=== PATIENT | female | born 1990 | race Caucasian/White ===

== ENCOUNTER 2021-03-20 16:37 | Emergency (ER) | payer OTHER, MEDICAID, SELFPAY ==
--- NOTE | ~2021-03-20 | US_ITS ---
US OB limited DATE: 03/20/2021 18:55 INDICATION: Leaking fluid. Miscarriage. TECHNIQUE: Real-time imaging and Doppler analysis COMPARISON: None FINDINGS: Live james intrauterine gestation, fetus in vertex presentation, longitudinal lie, with heart rate of 150 bpm. Anterior placenta. Subjectively normal amount of amniotic fluid. IMPRESSION: No significant abnormality demonstrated on limited examination Reviewed, dictated and finalized at [facility]. Reviewed, dictated and finalized at [facility].
[2021-03-20 16:44] VITALS: BP 143/72; PULSE 97; RESP 18; TEMP 36.5; O2SAT 98
[2021-03-20 18:20] LABS: Basophils Percent Auto 0.1 % (0.2-1.2); Eosinophils Absolute Auto 0.1 K/mm3 (0-0.3); Eosinophils Percent Auto 0.6 % (0-4.4); Hematocrit 26.5 % (37.0-47.0); Hemoglobin 7.2 g/dL (12.0-15.0); Immature Granulocyte Absolute 0.04 K/mm3 (0.00-0.031); Immature Granulocyte Percent A 0.4 % (0-0.5); Immature Platelet Fraction Pct 5.1 % (0.9-11.2); Lymphocytes Absolute Auto 2.37 K/mm3 (0.9-3.2); Lymphocytes Percent Auto 25.5 % (18.3-44.2); Mean Corpuscular HGB Conc 27.2 g/dl (32-36); Mean Corpuscular Hemoglobin 15.9 pg (26-34); Mean Corpuscular Volume 58.6 fl (80-100); Mean Platelet Volume 9.6 fl (7.4-10.4); Monocytes Absolute Auto 0.6 K/mm3 (0.1-0.6); Monocytes Percent Auto 6.4 % (2.6-8.5); Neutrophils Absolute Auto 6.2 K/mm3 (1.3-6.7); Platelet Count Result 239 k/mm3 (150-375); Red Blood Count 4.52 M/mm3 (4.2-5.4); Red Cell Distribution Width 21.3 % (11.5-14.5); White Blood Count 9.3 K/mm3 (4.5-10.0)
[2021-03-20 18:27] LABS: Platelet Estimate Adequate (Adequate)
[2021-03-20 18:28] LABS: Hypochromasia 2+ (NORMAL); Ovalocytes 1+ (NORMAL)
--- NOTE | 2021-03-20 18:33 | ED.PREGNANCY ---
HPI - General Chief complaint: MEDIA CENTER ASSISTANT Stated complaint: leaking amniotic fluid Time Seen by Provider: 03/20/21 17:15 Source: patient and family Mode of arrival: ambulatory Limitations: no limitations History of Present Illness HPI Narrative: Patient is 31 years old white female who presented to the ED with sudden onset of gush of clear fluid came out of the vagina yesterday, been trickling since. Patient is of unknown duration, does not know when the last time she had it.. Did not see an FLOORING MECHANIC or any physician for years. Patient denies any fever, chills, nausea, vomiting, abdominal pain, chest pain, shortness of breath or back pain. Patient is 0, para 0 and 0 Related Data Home Medications Medication Instructions Recorded Confirmed prenat.vits,rudy,[id number] 1 tablet PO DAILY 02/17/21 Allergies Allergy/AdvReac Type Severity Reaction Status Date / Time No Known Allergies Allergy Verified 03/20/21 16:46 Review of Systems Review of Systems: Narrative: CONSTITUTIONAL: Denies fever, chills, or sweats. EYES: Denies visual changes, redness, or discharge. ENT: Denies rhinorrhea, congestion, sore throat, or otalgia. CARDIOVASCULAR: Denies chest pain, palpitations, or edema. RESPIRATORY: Denies cough or dyspnea. GASTROINTESTINAL: Denies abdominal pain, nausea, vomiting, or diarrhea. GENITOURINARY: Denies dysuria or hematuria. SKIN: Denies rash or itching. MUSCULOSKELETAL: Denies back pain, joint pain, or myalgia. NEUROLOGIC: Denies headache, numbness, or weakness. PSYCHIATRIC: Denies anxiety or depression. PMFSH Surgical History Surgical History History of oral surgery Family History Family History Father Alcoholism Hypertension Mother Diabetes mellitus Depression Grandparent Diabetes mellitus Hypertension Depression Heart disease Thyroid disorder Social History Social History Smoking status: Current every day smoker Alcohol intake: never Substance use: never Gender identity (if verbalized by the patient): Female Exam Narrative: Exam Narrative: General appearance: Well-developed, well-nourished Skin: Normal color Head: Normocephalic, nontraumatic Eyes: Clear conjunctiva ENT: Oropharynx normal, ears normal, nose normal Neck: Supple, nontender Chest and respiratory: Airway patent, no respiratory distress, no accessory muscle use Heart: Regular rate/rhythm Abdomen: Soft, nontender, no organomegaly, quiet bowel sounds Vascular: Normal peripheral pulses, normal capillary refill. Musculoskeletal: Normal range of motion, nontender back Neurologic: Alert and oriented ?3, BANK PRESIDENT is normal as tested, no gross motor deficit : Speculum Exam - Vagina: normal appearance of the vagina and normal vaginal discharge Speculum Exam - Cervix: normal appearance of the cervix and Cervical os closed Bimanual exam- vagina & uterus: normal bimanual exam and normal palpation Bimanual Exam- Adnexa, other: normal adnexae Course Course Emergency Course: Stable Consultations Consultation #1: Dr. Botello, patient can go home, to follow-up with me on as scheduled. Date: 03/20/21 Time: 20:44 Vital Signs Vital signs: Vital Signs Temperature 36.5 C 03/20/21 16:44 Pulse Rate 97 03/20/21 16:44 Respiratory Rate 18 03/20/21 16:44 Blood Pressure 143/72 H 03/20/21 16:44 Pulse Oximetry 98 03/20/21 16:44 Temperature 36.5 C 03/20/21 16:44 Pulse Rate 92 03/20/21 19:56 Respiratory Rate 14 03/20/21 19:56 Blood Pressure
[2021-03-20 19:56] VITALS: BP 132/84; PULSE 92; RESP 14; O2SAT 98
== END 2021-03-20 20:53 | disposition home or self-care (01) ==
PROVIDERS: Emergency Provider Emergency Medicine
DX: O99.019 Anemia complicating pregnancy, unspecified trimester (principal); D64.9 Anemia, unspecified; O99.330 Smoking (tobacco) complicating pregnancy, unspecified trimester; F17.200 Nicotine dependence, unspecified, uncomplicated; Z3A.00 Weeks of gestation of pregnancy not specified
CPT/HCPCS: 36415; 76815; 81025; 84702; 85025; 85055; 85461; 99284

== ENCOUNTER 2021-03-23 13:54 | Outpatient (CLI) | payer MEDICAID, SELFPAY ==
[2021-03-23 14:35] LABS: Immature Reticulocyte Fraction 28.3 % (3.0-15.9); Reticulocytes Absolute 0.09 B/L (32.2-175.7)
[2021-03-23 14:42] LABS: Add Urine Microscopic? YES; Appearance Urine Cloudy (Clear); Bacteria Urine Trace /hpf; Bilirubin Urine Negative (Negative); Blood Urine Negative (Negative); Color Urine Yellow (Yellow); Glucose Urine UA Negative (Negative); Ketones Urine Negative (Negative); Leukocyte Esterase Ur 3+ LEU/UL (NEGATIVE); Mucus Urine Moderate /lpf; Nitrate Urine Negative (Negative); Protein Urine 1+ mg/dL (Negative); Squamous Epithelial Cell Urine Many /hpf (Few); Urobilinogen Urine Negative mg/dL (<2.0)
[2021-03-23 15:19] LABS: Iron 77 ug/dL (37-170)
[2021-03-23 15:28] LABS: Percent Iron Saturation 14 % (20-50)
[2021-03-23 15:29] LABS: HIV 1/2 Ab P24 Ag Result Negative (Negative)
[2021-03-23 15:56] LABS: Ferritin 3.89 ng/mL (6.24-137)
[2021-03-23 16:59] LABS: Vitamin D 25 Hydroxy 23.8 ng/mL
[2021-03-23 17:12] LABS: Hepatitis B Surface Antigen Negative (Negative); Rubella IgG Antibody < 0.6 IU/ML
[2021-03-23 17:29] LABS: Hepatitis C Virus Antibody Negative (Negative)
[2021-03-24 07:19] LABS: Rapid Plasma Reagin Non-Reactive (NonReactive)
[2021-03-29 05:43] LABS: Hematocrit 27.6 % (35.0-45.0); Hemoglobin 7.9 g/dL (11.7-15.5); MCH 16.1 pg (27.0-33.0); MCV 56.1 FL (80.0-100.0); Red Blood Cell Count 4.92 Mill/uL (3.80-5.10)
== END 2021-03-23 13:55 | disposition home or self-care (01) ==
PROVIDERS: Visit Provider Student in an Organized Health Care Education/Training Program
DX: O36.80X0 Pregnancy with inconclusive fetal viability, not applicable or unspecified (principal); Z3A.14 14 weeks gestation of pregnancy
CPT/HCPCS: 36415; 81001; 82306; 82728; 83021; 83540; 83550; 84443; 85046; 86592; 86703; 86762; 86787; 86803; 86850; 86900; 86901; 87086; 87088; 87340; G0432

== ENCOUNTER 2021-03-24 15:46 | Outpatient (CLI) | payer MEDICAID, SELFPAY ==
--- NOTE | ~2021-03-24 | US_ITS ---
EXAMINATION: US OB <= 14 weeks fetus DATE: 03/24/2021 16:27 INDICATION: Inconclusive viability during second trimester of . TECHNIQUE: Real-time pelvic ultrasound utilizing both a transvaginal and transabdominal probe was pe rformed. The interpreting radiologist was not present for the study. COMPARISON: None. FINDINGS: The uterus measures 13.9 x 9.4 x 8.8 cm. There is an intrauterine gestational sac. A single fetus is seen in breech presentation. The crown rump length measures 8.3 cm, which correlates with an estimat ed gestational age of 14 weeks and 1 days. heart motion is identified measuring 163 beats per m inute (bpm) by M-mode Doppler. Amniotic fluid volume is subjectively normal. The bilateral ovaries ar e not visualized. There is no free fluid in the pelvis. IMPRESSION: 1. Single living fetus with heart rate of 163 bpm. 2. Gestational age by ultrasound of 14 weeks 1 day(s) +/- 1 week and 2 day(s) with ultrasound estima adeline date of delivery (YUMIKO) of 09/21/2021. Reviewed, dictated and finalized at location [facility]. IMPRESSION: 1. Single living fetus with heart rate of 163 bpm. 2. Gestational age by ultrasound of 14 weeks 1 day(s) +/- 1 week and 2 day(s) with ultrasound estimated date of delivery (YUMIKO) of 09/21/2021.
== END 2021-03-24 15:47 | disposition home or self-care (01) ==
PROVIDERS: Visit Provider Student in an Organized Health Care Education/Training Program
DX: Z34.92 Encounter for supervision of normal pregnancy, unspecified, second trimester (principal); Z3A.14 14 weeks gestation of pregnancy
CPT/HCPCS: 76801

== ENCOUNTER 2021-06-28 11:23 | Outpatient (CLI) | payer OTHER, SELFPAY ==
[2021-06-28 12:23] LABS: Total Volume 24 Hour Urine 2800 ml
[2021-06-28 12:25] LABS: Specific Gravity Ur 1.012
[2021-06-28 12:33] LABS: Total Protein Urine 24 Hr 336 mg/24hr (28-141); Total Protein Urine Random 12 mg/dL
[2021-06-28 12:34] LABS: Creatinine Urine 45.3 mg/dL
[2021-06-28 13:28] LABS: Basophils Percent Auto 0.1 % (0.2-1.2); Eosinophils Percent Auto 0.4 % (0-4.4); Hematocrit 39.4 % (37.0-47.0); Hemoglobin 12.6 g/dL (12.0-15.0); Immature Granulocyte Absolute 0.05 K/mm3 (0.00-0.031); Immature Granulocyte Percent A 0.6 % (0-0.5); Immature Platelet Fraction Pct 10.6 % (0.9-11.2); Lymphocytes Absolute Auto 2.62 K/mm3 (0.9-3.2); Lymphocytes Percent Auto 29.2 % (18.3-44.2); Mean Corpuscular Hemoglobin 26.9 pg (26-34); Monocytes Absolute Auto 0.8 K/mm3 (0.1-0.6); Monocytes Percent Auto 9.2 % (2.6-8.5); Neutrophils Absolute Auto 5.4 K/mm3 (1.3-6.7); Neutrophils Percent Auto 60.5 % (45.5-73.1); Platelet Count Result 156 k/mm3 (150-375); Red Blood Count 4.69 M/mm3 (4.2-5.4); Red Cell Distribution Width 17.6 % (11.5-14.5)
[2021-06-28 13:45] LABS: Creatinine 24 Hour Urine 1.2 gm/24 (0.8-1.8); Total Volume 24 Hour Urine 2800 ml
[2021-06-28 13:58] LABS: Alanine Aminotransferase 16 U/L (4-35); Albumin Level 3.4 g/dL (3.5-5.1); Alkaline Phosphatase 83 U/L (38-126); Anion Gap 8 mmol/L (8-16); Aspartate Amino Transferase 20 U/L (14-36); Bilirubin,Total 0.2 mg/dL (0.2-1.3); Blood Urea Nitrogen 11 mg/dL (7-17); Calcium 8.7 mg/dL (8.4-10.2); Carbon Dioxide 18 mmol/L (22-30); Chloride 109 mmol/L (98-107); Estimated Glomerular Filt Rate > 60; Glucose 112 mg/dL (65-110); Glucose 1 Hour PP 50gm Dose 113 mg/dL; Lactate Dehydrogenase 388 U/L (313-618); Potassium 4.1 mmol/L (3.4-5.0); Sodium 135 mmol/L (137-145); Uric Acid 4.5 mg/dL (2.5-7.5)
== END 2021-06-28 11:24 | disposition home or self-care (01) ==
PROVIDERS: Visit Provider Student in an Organized Health Care Education/Training Program
DX: O16.2 Unspecified maternal hypertension, second trimester (principal); Z3A.00 Weeks of gestation of pregnancy not specified
CPT/HCPCS: 36415; 80053; 81050; 82570; 82947; 83615; 84156; 84443; 84550; 85025; 85055

== ENCOUNTER 2021-06-29 08:14 | Outpatient (CLI) | payer OTHER, SELFPAY | END 2021-06-29 08:15 | disposition home or self-care (01) | PROVIDERS: Visit Provider Student in an Organized Health Care Education/Training Program | DX: Z34.90 Encounter for supervision of normal pregnancy, unspecified, unspecified trimester (principal); R39.9 Unspecified symptoms and signs involving the genitourinary system; Z3A.00 Weeks of gestation of pregnancy not specified | CPT/HCPCS: 87086 ==

== ENCOUNTER 2021-07-07 14:24 | Outpatient (CLI) | payer OTHER, SELFPAY ==
[2021-07-07] VITALS (34 sets, daily range): BP systolic 145–175; BP diastolic 73–100; PULSE 50–74; RESP 16; TEMP 37.2; O2SAT 99–100
[2021-07-07 15:26] LABS: Basophils Percent Auto 0.2 % (0.2-1.2); Eosinophils Absolute Auto 0.1 K/mm3 (0-0.3); Eosinophils Percent Auto 0.5 % (0-4.4); Hematocrit 35.9 % (37.0-47.0); Hemoglobin 11.9 g/dL (12.0-15.0); Immature Granulocyte Absolute 0.05 K/mm3 (0.00-0.031); Immature Granulocyte Percent A 0.5 % (0-0.5); Immature Platelet Fraction Pct 12.4 % (0.9-11.2); Lymphocytes Absolute Auto 2.74 K/mm3 (0.9-3.2); Lymphocytes Percent Auto 27.6 % (18.3-44.2); Mean Corpuscular HGB Conc 33.1 g/dl (32-36); Mean Corpuscular Hemoglobin 28.1 pg (26-34); Mean Corpuscular Volume 84.7 fl (80-100); Monocytes Absolute Auto 0.9 K/mm3 (0.1-0.6); Neutrophils Absolute Auto 6.2 K/mm3 (1.3-6.7); Neutrophils Percent Auto 62.2 % (45.5-73.1); Platelet Count Result 111 k/mm3 (150-375); Red Blood Count 4.24 M/mm3 (4.2-5.4); Red Cell Distribution Width 15.6 % (11.5-14.5); White Blood Count 9.9 K/mm3 (4.5-10.0)
[2021-07-07 15:27] LABS: Alanine Aminotransferase 57 U/L (4-35); Albumin Level 3.3 g/dL (3.5-5.1); Alkaline Phosphatase 92 U/L (38-126); Anion Gap 8 mmol/L (8-16); Aspartate Amino Transferase 37 U/L (14-36); Bilirubin,Total 0.2 mg/dL (0.2-1.3); Blood Urea Nitrogen 16 mg/dL (7-17); Calcium 8.9 mg/dL (8.4-10.2); Carbon Dioxide 20 mmol/L (22-30); Chloride 105 mmol/L (98-107); Estimated Glomerular Filt Rate > 60; Glucose 84 mg/dL (65-110); Potassium 4.3 mmol/L (3.4-5.0); Sodium 133 mmol/L (137-145); Uric Acid 5.5 mg/dL (2.5-7.5)
[2021-07-07] MEDS: LABETALOL HCL INJ 100 MG/20 ML VIAL 20 MG IV PUSH (15:36)
[2021-07-07] MEDS: LABETALOL HCL 100 MG TABLET 200 MG PO (15:40)
--- NOTE | 2021-07-07 17:19 | PM.IMHP ---
H&P: HPI History of Present Illness Date/Time: 07/07/21 17:19 Patient is a 31-year-old LMP uncertain in December 2020. Patient currently 29 weeks 1 day gestation with YUMIKO 09/21/2021. Patient is dated by ultrasound on 03/24/2021 at 14 weeks gestation. Patient presented to OB office for routine visit today. Patient had first elevated blood pressure in office on 05/26/21 and was subsequently diagnosed with gestational hypertension. A 24 hour urine collection was performed on 06/28/2021 showing 336 mg of protein. Patient diagnosed with preeclampsia. Patient has been taking blood pressure measurements at home and brought blood pressure log to office visit today. Blood pressures have been progressively worsening over past week. In office today, patient had two severe range elevated blood pressure measurements. Patient was sent to labor and delivery for further evaluation. On labor and delivery, patient continued to have persistently elevated blood pressures with a few further measurements in the severe range. Patient received 1 dose of Labetalol IV 20 mg as well as one dose of PO Labetalol 200 mg. Labs were obtained and patient was noted to have thrombocytopenia as well as an increase in liver enzymes, which is a significant change from labs obtained last week. Patient also reports feeling a little worse today. Reported a headache earlier today as well as feeling extremely tired. She denies any chest pain, shortness of breath, nausea, vomiting, or visual disturbances. Reported epigastric and right upper quadrant tenderness two days ago. She also reports worsening LE and UE edema over past few days. She denies any vaginal bleeding, leakage of fluid, or contractions. Reports good movement. Decision made to admit patient to labor and delivery for further management as well as transfer to tertiary care center for management of preeclampsia with severe features at 29 weeks gestation. Chief Complaint: IUP at 29w1d gestation Preeclampsia Review of Systems Review of Systems: All systems reviewed & are unremarkable except as noted in HPI and below Constitutional: Constitutional: Reports as per HPI, Reports no additional constitutional complaints, Denies chills, Denies fever(s), Denies headache(s) and Denies night sweats Eyes: Eyes: Reports as per HPI and Reports no additional eye complaints ENT: Reports system reviewed and no additional complaints, except as documented, Reports as per HPI, Reports Normal hearing present and Denies headache(s) Cardiovascular: Cardiovascular: Reports as per HPI, Reports no additional cardiovascular complaints, Denies chest pain and Denies dyspnea Respiratory: Respiratory: Reports as per HPI, Reports no additional respiratory complaints, Denies cough and Denies dyspnea Gastrointestinal: Gastrointestinal: Reports as per HPI, Reports no additional gastrointestinal complaints, Denies abdominal pain, Denies change in bowel habits, Denies change in stool character, Denies nausea and Denies vomiting Genitourinary: Genitourinary: Reports no additional female genitourinary complaints, Reports as per HPI, Denies abnormal vaginal bleeding, Denies genital lesions, Denies hot flashes, Denies dyspareunia, Denies pelvic pain, Denies sexual dysfunction, Denies urinary incontinence, Denies vaginal discharge, Denies vaginal dryness and Denies vaginal odor Musculoskeletal: Musculoskeletal: Reports no additional musculoskeletal complaints and Reports as per HPI Integumentary/Breasts: Skin/Breast: Reports system reviewed and no additional complaints, except as docu, Reports as per HPI, Denies breast pain and Denies nipple discharge Neurologic: Reports system reviewed and no additional complaints, except as documented, Reports as per HPI, Reports Normal hearing present and Denies headache(s) Psychiatric: Psychiatric: Reports no additional psychiatric complaints, Reports as per HPI, Denies anxiety and Denies depression Endocrine: Endoc
[2021-07-07] MEDS: LACTATED RINGERS 1,000 ML 75 ML IV CONT (17:26)
[2021-07-07] MEDS: MAGNESIUM SULF 4 GM/WATER100ML 4 GM/100 ML BAG IVPB (17:31)
[2021-07-07] MEDS: BETAMETHASONE SOD PHOS/ACETATE 30 MG/5 ML VIAL 12 MG IM (17:38)
--- NOTE | 2021-07-07 17:54 | PC.NURSE ---
1703- Dr. Botello at bedside discussing plan of care with pt.
--- NOTE | 2021-07-07 17:56 | PC.NURSE ---
1717- report given to VERONICA Sandoval at [facility].
--- NOTE | 2021-07-07 17:56 | PCDIET ---
1740- [facility] transport en route.
[2021-07-07] MEDS: MAGNESIUM SULF 20GM/WATER500ML 500 ML 50 MG IV CONT (18:03)
== END 2021-07-07 19:04 | disposition short-term general hospital (02) ==
LOC: ANHOBOP 14:28 → ANHOBPP 14:29
PROVIDERS: Visit Provider Student in an Organized Health Care Education/Training Program
DX: O13.9 Gestational [pregnancy-induced] hypertension without significant proteinuria, unspecified trimester (principal); Z3A.29 29 weeks gestation of pregnancy; O14.90 Unspecified pre-eclampsia, unspecified trimester; O99.019 Anemia complicating pregnancy, unspecified trimester; Z87.891 Personal history of nicotine dependence
CPT/HCPCS: 36415; 80053; 84550; 85025; 85055; 96372; 99199; A9270; J0702; J3475; J7120

== ENCOUNTER 2023-04-26 08:15 | Outpatient (CLI) | payer OTHER, SELFPAY ==
[2023-04-26 14:32] LABS: Basophils Percent Auto 0.3 % (0.2-1.2); Eosinophils Absolute Auto 0.2 K/mm3 (0-0.3); Eosinophils Percent Auto 1.7 % (0-4.4); Hematocrit 42.6 % (37.0-47.0); Hemoglobin 13.8 g/dL (12.0-15.0); Immature Granulocyte Absolute 0.02 K/mm3 (0.00-0.031); Immature Granulocyte Percent A 0.2 % (0-0.5); Lymphocytes Absolute Auto 2.31 K/mm3 (0.9-3.2); Lymphocytes Percent Auto 26.3 % (18.3-44.2); Mean Corpuscular HGB Conc 32.4 g/dl (32-36); Mean Corpuscular Hemoglobin 27.2 pg (26-34); Mean Corpuscular Volume 83.9 fl (80-100); Mean Platelet Volume 10.2 fl (7.4-10.4); Monocytes Absolute Auto 0.7 K/mm3 (0.1-0.6); Monocytes Percent Auto 7.6 % (2.6-8.5); Neutrophils Absolute Auto 5.6 K/mm3 (1.3-6.7); Neutrophils Percent Auto 63.9 % (45.5-73.1); Platelet Count Result 229 k/mm3 (150-375); Red Blood Count 5.08 M/mm3 (4.2-5.4); Red Cell Distribution Width 12.9 % (11.5-14.5); White Blood Count 8.8 K/mm3 (4.5-10.0)
[2023-04-26 16:19] LABS: Alanine Aminotransferase 29 U/L (6-35); Albumin Level 4.3 g/dL (3.5-5.1); Alkaline Phosphatase 66 U/L (38-126); Anion Gap 3 mmol/L (8-16); Aspartate Amino Transferase 29 U/L (14-36); Bilirubin,Total 0.5 mg/dL (0.2-1.3); Blood Urea Nitrogen 12 mg/dL (7-17); Calcium 9.3 mg/dL (8.4-10.2); Carbon Dioxide 28 mmol/L (22-30); Chloride 102 mmol/L (98-107); Cholesterol 209 mg/dL (0-200); Estimated Glomerular Filt Rate > 60; Glucose 92 mg/dL (65-110); HDL Direct 44 mg/dL; Potassium 4.3 mmol/L (3.4-5.0); Sodium 133 mmol/L (137-145); Triglycerides 225 mg/dL (<150)
[2023-04-26 16:31] LABS: LDL Cholesterol Direct 125 mg/dL
== END 2023-04-26 08:16 | disposition home or self-care (01) ==
LOC: ANHGOSHLAB 08:16
PROVIDERS: PCP Internal Medicine; Visit Provider Nurse Practitioner
DX: E66.9 Obesity, unspecified (principal)
CPT/HCPCS: 36415; 80053; 80061; 84443; 85025

== ENCOUNTER 2023-11-12 15:37 | Outpatient (CLI) | payer OTHER, SELFPAY ==
[2023-11-12 16:19] LABS: Basophils Percent Auto 0.2 % (0.2-1.2); Eosinophils Absolute Auto 0.1 K/mm3 (0-0.3); Hematocrit 44.3 % (37.0-47.0); Hemoglobin 14.1 g/dL (12.0-15.0); Immature Granulocyte Absolute 0.02 K/mm3 (0.00-0.031); Immature Granulocyte Percent A 0.2 % (0-0.5); Lymphocytes Absolute Auto 2.57 K/mm3 (0.9-3.2); Lymphocytes Percent Auto 30.7 % (18.3-44.2); Mean Corpuscular HGB Conc 31.8 g/dl (32-36); Mean Corpuscular Hemoglobin 26.1 pg (26-34); Mean Corpuscular Volume 81.9 fl (80-100); Mean Platelet Volume 10.5 fl (7.4-10.4); Monocytes Absolute Auto 0.5 K/mm3 (0.1-0.6); Monocytes Percent Auto 6.2 % (2.6-8.5); Neutrophils Absolute Auto 5.2 K/mm3 (1.3-6.7); Neutrophils Percent Auto 61.7 % (45.5-73.1); Platelet Count Result 223 k/mm3 (150-375); Red Blood Count 5.41 M/mm3 (4.2-5.4); Red Cell Distribution Width 14.1 % (11.5-14.5); White Blood Count 8.4 K/mm3 (4.5-10.0)
[2023-11-12 17:09] LABS: HIV 1/2 Ab P24 Ag Result Negative (Negative)
[2023-11-12 18:31] LABS: Hepatitis B Surface Antigen Negative (Negative); Rubella IgG Antibody 64.6 IU/ML
[2023-11-13 15:57] LABS: Rapid Plasma Reagin Non-Reactive (NonReactive)
[2023-11-14 08:57] LABS: CMV IgG Antibody >10.00 U/mL (<0.60)
== END 2023-11-12 15:38 | disposition home or self-care (01) ==
LOC: ANHLAB 15:38
PROVIDERS: PCP Internal Medicine; Visit Provider Student in an Organized Health Care Education/Training Program
DX: N94.89 Other specified conditions associated with female genital organs and menstrual cycle (principal)
CPT/HCPCS: 36415; 85025; 85027; 86592; 86644; 86703; 86747; 86762; 86787; 86850; 86900; 86901; 87086; 87340; G0432

== ENCOUNTER 2024-01-31 09:46 | Outpatient (CLI) | payer OTHER, SELFPAY ==
[2024-01-31 10:34] LABS: Alanine Aminotransferase 13 U/L (6-35); Albumin Level 3.9 g/dL (3.5-5.1); Alkaline Phosphatase 52 U/L (38-126); Anion Gap 6 mmol/L (4-12); Aspartate Amino Transferase 18 U/L (14-36); Bilirubin,Total 0.4 mg/dL (0.2-1.3); Blood Urea Nitrogen 13 mg/dL (7-17); Calcium 9.3 mg/dL (8.4-10.2); Carbon Dioxide 20 mmol/L (22-30); Chloride 108 mmol/L (98-107); Estimated Glomerular Filt Rate > 60; Glucose 90 mg/dL (65-110); Potassium 4.2 mmol/L (3.4-5.0); Sodium 134 mmol/L (137-145)
[2024-01-31 10:40] LABS: Creatinine Urine 134.8 mg/dL
[2024-01-31 10:59] LABS: Total Protein Urine Random < 5 mg/dL; Ur Ttl Prot Creatinine Ratio < 0.04 mg/mg (0-0.20)
== END 2024-01-31 09:47 | disposition home or self-care (01) ==
PROVIDERS: PCP Internal Medicine
DX: O09.299 Supervision of pregnancy with other poor reproductive or obstetric history, unspecified trimester (principal); Z3A.00 Weeks of gestation of pregnancy not specified
CPT/HCPCS: 36415; 80053; 82570; 84156

== ENCOUNTER 2024-04-29 17:03 | Outpatient (CLI) | payer OTHER, SELFPAY ==
[2024-04-29 17:42] LABS: Basophils Percent Auto 0.1 % (0.2-1.2); Eosinophils Absolute Auto 0.1 K/mm3 (0-0.3); Eosinophils Percent Auto 1.1 % (0-4.4); Hematocrit 34.3 % (37.0-47.0); Hemoglobin 11.4 g/dL (12.0-15.0); Immature Granulocyte Absolute 0.08 K/mm3 (0.00-0.031); Immature Granulocyte Percent A 0.8 % (0-0.5); Lymphocytes Absolute Auto 2.15 K/mm3 (0.9-3.2); Lymphocytes Percent Auto 22.2 % (18.3-44.2); Mean Corpuscular HGB Conc 33.2 g/dl (32-36); Mean Corpuscular Hemoglobin 28.1 pg (26-34); Mean Corpuscular Volume 84.7 fl (80-100); Monocytes Percent Auto 9.9 % (2.6-8.5); Neutrophils Absolute Auto 6.4 K/mm3 (1.3-6.7); Neutrophils Percent Auto 65.9 % (45.5-73.1); Platelet Count Result 164 k/mm3 (150-375); Red Blood Count 4.05 M/mm3 (4.2-5.4); Red Cell Distribution Width 13.9 % (11.5-14.5); White Blood Count 9.7 K/mm3 (4.5-10.0)
[2024-04-29 17:45] VITALS: BP 137/79; PULSE 70
[2024-04-29 17:51] LABS: Alanine Aminotransferase 12 U/L (6-35); Albumin Level 3.4 g/dL (3.5-5.1); Alkaline Phosphatase 89 U/L (38-126); Anion Gap 8 mmol/L (4-12); Aspartate Amino Transferase 15 U/L (14-36); Bilirubin,Total 0.4 mg/dL (0.2-1.3); Blood Urea Nitrogen 9 mg/dL (7-17); Calcium 8.5 mg/dL (8.4-10.2); Carbon Dioxide 19 mmol/L (22-30); Chloride 107 mmol/L (98-107); Estimated Glomerular Filt Rate > 60; Glucose 124 mg/dL (65-110); Potassium 3.7 mmol/L (3.4-5.0); Sodium 134 mmol/L (137-145); Uric Acid 2.6 mg/dL (2.5-7.5)
[2024-04-29 17:55] LABS: Appearance Urine Clear (Clear); Bacteria Urine 4+ /hpf; Bilirubin Urine Negative (Negative); Blood Urine Negative (Negative); Calcium Oxalate Crystals Urine Present /hpf; Color Urine Yellow (Yellow); Glucose Urine UA 2+ mg/dL (Negative); Ketones Urine Trace mg/dL (Negative); Leukocyte Esterase Ur Negative LEU/UL (Negative); Need Manual Microscopic Reviewed; Nitrate Urine Negative (Negative); Non Pathogenic Casts 0-2; Protein Urine Trace mg/dL (Negative); RBC Urine 0-2 /hpf (0-2); Specific Grav Ur 1.034 (1.001-1.035); Squamous Epithelial Cell Urine Occasional /hpf (Few)
[2024-04-29 18:00] VITALS: BP 141/81; PULSE 76
[2024-04-29 18:00] LABS: Add Urine Microscopic? YES
[2024-04-29 18:15] VITALS: BP 142/80; PULSE 73
[2024-04-29] MEDS: ACETAMINOPHEN 500 MG TABLET 1000 MG PO (18:17)
[2024-04-29 18:30] VITALS: BP 135/87; BP 154/87; PULSE 68; PULSE 76
[2024-04-29 18:45] VITALS: BP 135/83; PULSE 74
[2024-04-29 19:03] LABS: Creatinine Urine 172.4 mg/dL
[2024-04-29 19:37] LABS: Total Protein Urine Random < 5 mg/dL; Ur Ttl Prot Creatinine Ratio < 0.03 mg/mg (0-0.20)
== END 2024-04-29 19:05 | disposition home or self-care (01) ==
LOC: ANHOBOP 17:07 → ANHOBPP 17:07
PROVIDERS: PCP Internal Medicine; Visit Provider Obstetrics & Gynecology
DX: O13.9 Gestational [pregnancy-induced] hypertension without significant proteinuria, unspecified trimester (principal); Z3A.00 Weeks of gestation of pregnancy not specified
CPT/HCPCS: 36415; 59025; 80053; 81001; 82570; 84156; 84550; 85025; 87086; 99199; A9270

== ENCOUNTER 2024-05-29 10:30 | Outpatient (CLI) | payer OTHER, SELFPAY ==
[2024-05-29] VITALS (10 sets, daily range): BP systolic 133–164; BP diastolic 74–86; PULSE 65–86; BMI 36.1
[2024-05-29 11:14] LABS: Basophils Percent Auto 0.3 % (0.2-1.2); Eosinophils Percent Auto 0.6 % (0-4.4); Hemoglobin 11.2 g/dL (12.0-15.0); Immature Granulocyte Absolute 0.03 K/mm3 (0.00-0.031); Immature Granulocyte Percent A 0.4 % (0-0.5); Lymphocytes Absolute Auto 1.83 K/mm3 (0.9-3.2); Lymphocytes Percent Auto 26.2 % (18.3-44.2); Mean Corpuscular Hemoglobin 26.8 pg (26-34); Mean Corpuscular Volume 83.7 fl (80-100); Mean Platelet Volume 12.1 fl (7.4-10.4); Monocytes Absolute Auto 0.5 K/mm3 (0.1-0.6); Neutrophils Absolute Auto 4.6 K/mm3 (1.3-6.7); Neutrophils Percent Auto 65.5 % (45.5-73.1); Platelet Count Result 150 k/mm3 (150-375); Red Blood Count 4.18 M/mm3 (4.2-5.4); Red Cell Distribution Width 14.1 % (11.5-14.5)
[2024-05-29 11:16] LABS: Add Urine Microscopic? YES; Appearance Urine Cloudy (Clear); Bilirubin Urine Negative (Negative); Blood Urine Negative (Negative); Color Urine Yellow (Yellow); Glucose Urine UA Negative (Negative); Ketones Urine Trace mg/dL (Negative); Leukocyte Esterase Ur 2+ LEU/UL (Negative); Nitrate Urine Negative (Negative); Protein Urine Trace mg/dL (Negative); RBC Urine 0-2 /hpf (0-2); Specific Grav Ur 1.025 (1.001-1.035); Urobilinogen Urine 0.2 mg/dL (<2.0); WBC Urine 21-50 /hpf (0-3); pH Urine 6.5 (5.0-9.0)
[2024-05-29 11:17] LABS: Bacteria Urine 4+ /hpf; Squamous Epithelial Cell Urine Few /hpf (Few)
[2024-05-29] MEDS: ACETAMINOPHEN 500 MG TABLET PO (11:20)
[2024-05-29 11:28] LABS: Alanine Aminotransferase 13 U/L (6-35); Albumin Level 3.3 g/dL (3.5-5.1); Alkaline Phosphatase 120 U/L (38-126); Anion Gap 10 mmol/L (4-12); Aspartate Amino Transferase 18 U/L (14-36); Bilirubin,Total 0.1 mg/dL (0.2-1.3); Blood Urea Nitrogen 10 mg/dL (7-17); Calcium 8.7 mg/dL (8.4-10.2); Carbon Dioxide 19 mmol/L (22-30); Chloride 102 mmol/L (98-107); Estimated Glomerular Filt Rate > 60; Glucose 135 mg/dL (65-110); Potassium 3.9 mmol/L (3.4-5.0); Sodium 131 mmol/L (137-145); Uric Acid 4.1 mg/dL (2.5-7.5)
[2024-05-29 11:36] LABS: Creatinine Urine 179.8 mg/dL; Total Protein Urine Random 6 mg/dL; Ur Ttl Prot Creatinine Ratio 0.03 mg/mg (0-0.20)
--- NOTE | 2024-05-29 12:32 | PC.NURSE ---
Dr. Garza informed of reactive NST, BP's including the 164/80 that was taken just minutes after pt's blood draw, and lab results. Pt's headache resolved after the Tylenol. Discussed pt gets her visual symptoms when she is working on packing because they are moving. OK to discharge to home. Pt to decrease activity including helping with moving.
== END 2024-05-29 12:36 | disposition home or self-care (01) ==
LOC: ANHOBOP 10:34 → ANHLDR 10:34 → ANHOBPP 10:36
PROVIDERS: PCP Internal Medicine; Visit Provider Obstetrics & Gynecology
DX: O13.9 Gestational [pregnancy-induced] hypertension without significant proteinuria, unspecified trimester (principal); Z3A.00 Weeks of gestation of pregnancy not specified
CPT/HCPCS: 36415; 59025; 80053; 81001; 82570; 84156; 84550; 85025; 87086; 87088; 99199; A9270

== ENCOUNTER 2024-06-05 10:13 | Inpatient (IN) | payer OTHER, SELFPAY ==
[2024-06-05] VITALS (49 sets, daily range): BP systolic 103–157; BP diastolic 54–97; PULSE 53–87; TEMP 36.6; BMI 35.2
--- NOTE | 2024-06-05 11:35 | LDADM ---
This patient, Sejal Bradford, was admitted to Labor/Delivery/Recovery 110 on 06/05/24 at 10:13. Plans for labor, pain management and were discussed with patient. Patient/family oriented to hospital policies and general routines including ID bracelet, bed and alarms, visiting hours, pain management, procedures, bathroom and other care routines, personal items, smoking policy, room service/diet and guest tray routines, infant security routines, and visiting hours. Patient/Family are encouraged to report perceived risks to care and to ask questions if they do not understand what they are told or what they should do. See OBIX for further documentation.
[2024-06-05] MEDS: ACETAMINOPHEN 500 MG TABLET 1000 MG PO ×2 (12:06→18:58)
[2024-06-05 12:09] LABS: Basophils Percent Auto 0.3 % (0.2-1.2); Eosinophils Percent Auto 0.4 % (0-4.4); Hematocrit 36.5 % (37.0-47.0); Hemoglobin 11.8 g/dL (12.0-15.0); Immature Granulocyte Absolute 0.05 K/mm3 (0.00-0.031); Immature Granulocyte Percent A 0.7 % (0-0.5); Lymphocytes Absolute Auto 2.12 K/mm3 (0.9-3.2); Lymphocytes Percent Auto 29.7 % (18.3-44.2); Mean Corpuscular HGB Conc 32.3 g/dl (32-36); Mean Corpuscular Hemoglobin 26.8 pg (26-34); Mean Platelet Volume 12.1 fl (7.4-10.4); Monocytes Absolute Auto 0.4 K/mm3 (0.1-0.6); Monocytes Percent Auto 4.9 % (2.6-8.5); Neutrophils Absolute Auto 4.6 K/mm3 (1.3-6.7); Platelet Count Result 154 k/mm3 (150-375); Red Cell Distribution Width 14.5 % (11.5-14.5); White Blood Count 7.2 K/mm3 (4.5-10.0)
[2024-06-05] MEDS: LACTATED RINGERS 1,000 ML 125 ML IV CONT (12:19)
[2024-06-05] MEDS: OXYTOCIN 30 UNITS/NS 500 ML 30 UNITS/500 ML BAG IV CONT (12:20)
[2024-06-05 12:35] LABS: Rapid Plasma Reagin Non-Reactive (NonReactive)
[2024-06-05 13:11] LABS: HIV 1/2 Ab P24 Ag Result Negative (Negative)
--- NOTE | 2024-06-05 13:57 | WPDANESEPP ---
Anes - Eval Pre Procedure Procedure: Labor Epidural Date/Time: 06/05/24 13:57 Surgeon: Greg Preop Diagnosis: Labor pain Pre Op Diagnosis: IOL Patient Data Age: 34 Gender: F Height: 1.7 m Weight: 102 kg Last Vital Signs Pulse 70 06/05/24 13:46 BP 150/77 H 06/05/24 13:46 O2 Del Method Room Air 06/05/24 11:35 Allergies Allergy/AdvReac Type Severity Reaction Status Date / Time No Known Allergies Allergy Verified 06/05/24 11:40 Home Medications Medication Instructions Recorded Confirmed Type aspirin 81 mg tablet,delayed 162 mg PO DAILY 11/12/23 05/29/24 History release (Adult Low Dose Aspirin) vits no.126-ferrous fum 1 tablet PO DAILY 11/12/23 06/05/24 History 28 mg iron-folic acid 800 mcg tablet (Classic ) metoclopramide HCl 10 mg tablet 10 mg PO Q6H PRN Nausea And 05/21/24 06/05/24 History (Reglan) Vomiting acetaminophen 500 mg tablet 500 mg PO Q6H PRN Nausea And 05/29/24 05/29/24 History (Tylenol Extra Strength) Vomiting doxylamine succinate 25 mg tablet 25 mg PO HS PRN Sleep 05/29/24 05/29/24 History (Unisom (doxylamine)) sertraline 100 mg tablet 100 mg PO DAILY 05/29/24 06/05/24 History Laboratory Tests 06/05/24 11:55 WBC 7.2 K/mm3 (4.5-10.0) RBC 4.40 M/mm3 (4.2-5.4) Hgb 11.8 L g/dL (12.0-15.0) Hct 36.5 L % (37.0-47.0) MCV 83.0 fl (80-100) MCH 26.8 pg (26-34) MCHC 32.3 g/dl (32-36) RDW 14.5 % (11.5-14.5) Plt Count 154 k/mm3 (150-375) MPV 12.1 H fl (7.4-10.4) Immature Gran % (Auto) 0.7 H % (0-0.5) Neut % (Auto) 64.0 % (45.5-73.1) Lymph % (Auto) 29.7 % (18.3-44.2) Wise % (Auto) 4.9 % (2.6-8.5) Eos % (Auto) 0.4 % (0-4.4) Baso % (Auto) 0.3 % (0.2-1.2) Lymph # (Auto) 2.12 K/mm3 (0.9-3.2) Wise # (Auto) 0.4 K/mm3 (0.1-0.6) Eos # (Auto) 0.0 K/mm3 (0-0.3) Baso # (Auto) 0.0 K/mm3 (0.0-0.1) Abs Immat Gran (auto) 0.05 H K/mm3 (0.00-0.031) Absolute Neuts (auto) 4.6 K/mm3 (1.3-6.7) Absolute Nucleated RBC 0.000 K/mm3 (0.0-0.012) Nucleated RBC % 0.0 % (0.0-0.2) RPR Non-reactive (NonReactive) HIV 1&2 Ab/P24 Ag 4thGn Negative (Negative) Blood Type O Positive Antibody Screen Negative : gestational age (YUMIKO 06/23/24, ) Patient hx anesthesia problems: none Family hx anesthesia problems: none Results Review: All pre-operative results and documents have been reviewed as part of the pre-operative evaluation. [facility] Past Medical History Medical History Anemia Delivery by section using transverse incision of lower segment of uterus Suppression of menses Surgical History Surgical History History of delivery History of oral surgery Family History Family History Father Alcoholism Hypertension Mother Diabetes mellitus Depression Grandparent Diabetes mellitus Hypertension Depression Heart disease Thyroid disorder Social History Social History Smoking status: Former smoker Tobacco type: e-cigarettes/vaping Alcohol intake: never Substance use: never Substance use type: marijuana Do You Feel Safe in your Home?: Yes Lack of Transportation: No Lack of Food: Sometimes True Current Housing: I Have Housing Concerned About Future Housing: No Difficulty Paying Gas/Electric Bills: No Difficulty Paying for Meds: No Currently Unemployed: No Education: Trade/Vocational Certificate Difficulty w/ Childcare or Family Care: No Living arrangements: with family Gender identity (if verbalized by the patient): Female Sexual Orientation (if Verbalized by the Patient): Straight or Heterosexual Spiritual care
--- NOTE | 2024-06-05 15:47 | WPDHPUPDATE1 ---
History and Physical Update Update Date/Time: 06/05/24 15:47 34-year-old 2 para 0101 at 37 weeks gestation with previous due. She has gestational hypertension and history of severe preeclampsia. She presents for trial of labor after . induction of labor has been initiated with low-dose Pitocin. considering using the Intracervical Powell bulb for cervical ripening. reassuring status. Stable blood pressures. History and Physical has been reviewed, including an updated exam of the patient. There are NO changes in the patient's condition. Risks, benefits, and alternatives have been discussed and questions answered. Patient agrees to proceed with procedure.
--- NOTE | 2024-06-05 18:38 | WPDANESEPP ---
Anes - Eval Pre Procedure Procedure: labor epidural Date/Time: 06/05/24 18:38 Pre Op Diagnosis: IOL Patient Data Age: 34 Gender: F Height: 1.7 m Weight: 102 kg Last Vital Signs Pulse 71 06/05/24 18:30 BP 136/80 06/05/24 18:30 O2 Del Method Room Air 06/05/24 11:35 Allergies Allergy/AdvReac Type Severity Reaction Status Date / Time No Known Allergies Allergy Verified 06/05/24 11:40 Home Medications Medication Instructions Recorded Confirmed Type aspirin 81 mg tablet,delayed 162 mg PO DAILY 11/12/23 05/29/24 History release (Adult Low Dose Aspirin) vits no.126-ferrous fum 1 tablet PO DAILY 11/12/23 06/05/24 History 28 mg iron-folic acid 800 mcg tablet (Classic ) metoclopramide HCl 10 mg tablet 10 mg PO Q6H PRN Nausea And 05/21/24 06/05/24 History (Reglan) Vomiting acetaminophen 500 mg tablet 500 mg PO Q6H PRN Nausea And 05/29/24 05/29/24 History (Tylenol Extra Strength) Vomiting doxylamine succinate 25 mg tablet 25 mg PO HS PRN Sleep 05/29/24 05/29/24 History (Unisom (doxylamine)) sertraline 100 mg tablet 100 mg PO DAILY 05/29/24 06/05/24 History Laboratory Tests 06/05/24 11:55 WBC 7.2 K/mm3 (4.5-10.0) RBC 4.40 M/mm3 (4.2-5.4) Hgb 11.8 L g/dL (12.0-15.0) Hct 36.5 L % (37.0-47.0) MCV 83.0 fl (80-100) MCH 26.8 pg (26-34) MCHC 32.3 g/dl (32-36) RDW 14.5 % (11.5-14.5) Plt Count 154 k/mm3 (150-375) MPV 12.1 H fl (7.4-10.4) Immature Gran % (Auto) 0.7 H % (0-0.5) Neut % (Auto) 64.0 % (45.5-73.1) Lymph % (Auto) 29.7 % (18.3-44.2) Tucker % (Auto) 4.9 % (2.6-8.5) Eos % (Auto) 0.4 % (0-4.4) Baso % (Auto) 0.3 % (0.2-1.2) Lymph # (Auto) 2.12 K/mm3 (0.9-3.2) Tucker # (Auto) 0.4 K/mm3 (0.1-0.6) Eos # (Auto) 0.0 K/mm3 (0-0.3) Baso # (Auto) 0.0 K/mm3 (0.0-0.1) Abs Immat Gran (auto) 0.05 H K/mm3 (0.00-0.031) Absolute Neuts (auto) 4.6 K/mm3 (1.3-6.7) Absolute Nucleated RBC 0.000 K/mm3 (0.0-0.012) Nucleated RBC % 0.0 % (0.0-0.2) RPR Non-reactive (NonReactive) HIV 1&2 Ab/P24 Ag 4thGn Negative (Negative) Blood Type O Positive Antibody Screen Negative : gestational age (YUMIKO 06/23/24, ) Patient hx anesthesia problems: none Family hx anesthesia problems: none Results Review: All pre-operative results and documents have been reviewed as part of the pre-operative evaluation. [facility] Past Medical History Medical History Anemia Delivery by section using transverse incision of lower segment of uterus Suppression of menses Surgical History Surgical History History of delivery History of oral surgery Family History Family History Father Alcoholism Hypertension Mother Diabetes mellitus Depression Grandparent Diabetes mellitus Hypertension Depression Heart disease Thyroid disorder Social History Social History Smoking status: Former smoker Tobacco type: e-cigarettes/vaping Alcohol intake: never Substance use: never Substance use type: marijuana Do You Feel Safe in your Home?: Yes Lack of Transportation: No Lack of Food: Sometimes True Current Housing: I Have Housing Concerned About Future Housing: No Difficulty Paying Gas/Electric Bills: No Difficulty Paying for Meds: No Currently Unemployed: No Education: Trade/Vocational Certificate Difficulty w/ Childcare or Family Care: No Living arrangements: with family Gender identity (if verbalized by the patient): Female Sexual Orientation (if Verbalized by the Patient): Straight or Heterosexual Spiritual care concerns: No [facility]
[2024-06-06] VITALS (289 sets, daily range): BP systolic 94–173; BP diastolic 52–91; PULSE 48–105; TEMP 36.3–36.6; O2SAT 86–100
[2024-06-06] MEDS: LACTATED RINGERS 1,000 ML 125 ML IV CONT (00:22)
[2024-06-06] MEDS: SERTRALINE HCL 50 MG TABLET 100 MG PO (08:54)
--- NOTE | 2024-06-06 13:02 | PM.OBPNLAB ---
Pain Control Date/time seen: 06/06/24 13:02 Pain control: epidural Pelvic Exam Dilation (cm): 5 Effacement (%): 70 station: -2 Amniotic membrane status: Ruptured Comments: clear fluid on AROM; s/p hutchins bulb Status status: Category l Assessment and Plan Pitocin rate (mU/min): 18 Assessment: induction ongoing Plan: continuous present management
[2024-06-06] MEDS: SODIUM CHLORIDE 0.9% IV 300 ML 600 ML I-UTERINE (16:21)
--- NOTE | 2024-06-06 20:46 | PM.OBPRVD ---
OB - Vaginal Delivery Note Procedure Delivery date: 06/06/24 Events: Gestational Hypertension and Previous Delivery Induction method: AROM, Per Pitocin Protocol and Other (hutchins ) Delivery monitor: External FHT and Internal Uterine Route of delivery: Episiotomy description: None Laceration Description: Perineal - 2nd Degree Delivery repair: vicryl Specimen: Yes Quantitative Blood Loss (ml): 175 Anesthesia type: Epidural Disposition: Floor Complications: No immediate complications Baby Date of : 06/06/24 Time of : 20:27 Gestational Age by Date: 37 Infant gender: Male Weight (pounds): 7 Weight (ounces): 4 presentation: vertex position: Left Occiput Anterior Placenta delivery description: Spontaneous Cord Vessel Description: 3 Vessels score one minute: 8 score five minutes: 9
[2024-06-06] MEDS: OXYTOCIN 30 UNITS/NS 500 ML 30 UNITS/500 ML BAG 125 UNITS IV CONT (20:57)
[2024-06-06] MEDS: BENZOCAINE 20% AER SPR (*SP) 56 GM CAN 1 SPRAY TOPICAL (22:52)
[2024-06-06] MEDS: WITCH HAZEL 40 PADS 1 PAD TOPICAL (22:52)
--- NOTE | 2024-06-06 23:20 | OBPPTRN ---
Patient transferred to post room #288 via wheelchair @ 1344. Support person present. Oriented to unit, room, information board, rooming in, admission packet and security measures. Patient verbalizes understanding.
[2024-06-07 00:03] VITALS: BP 151/84; PULSE 73; RESP 20; TEMP 37.1; O2SAT 98
[2024-06-07] MEDS: ACETAMINOPHEN 325 MG TABLET 650 MG PO ×4 (00:55→23:48)
[2024-06-07] MEDS: IBUPROFEN 600 MG TABLET PO ×5 (00:55→23:48)
[2024-06-07 03:53] VITALS: BP 149/86; PULSE 63; RESP 12; TEMP 36.7; O2SAT 98
[2024-06-07 04:50] LABS: Hemoglobin 10.3 g/dL (12.0-15.0)
[2024-06-07] MEDS: SERTRALINE HCL 50 MG TABLET 100 MG PO (06:53)
[2024-06-07] MEDS: MULTIVIT/MIN/PREN/FOL AC/IRON TABLET 1 TAB PO (06:53)
--- NOTE | 2024-06-07 07:00 | PC.NURSE ---
Consulted with patient to assess needs related to . Discussed with mother her successes, concerns and any questions she has. We reviewed working with the , protecting her nipples with an optimal deep latch, good positioning. Encouraged understanding the benefits of skin to skin, responding to feeding cues, frequencies of feeding 8-12 times in 24 hours (approximately 2-3 hours), duration of feedings, intake/output feeding sheet and signs of adequate intake . Reviewed positioning and alignment, off-centered (asymmetrical latch) and leading with the chin with big, open, wide gape. latched optimally to the [right] breast in [football] position. Education given to the mother of how to visualize the suckling and encouraging baby to suck when he has long pauses. The was [able] to maintain latch without discomfort to mother. Mother voiced understanding of the education shared, to call for assistance if the infant does not latch or if there is discomfort with . Reported to the Primary RN.
[2024-06-07 09:00] VITALS: BP 135/79; PULSE 99; RESP 16; TEMP 36.6; O2SAT 100
--- NOTE | 2024-06-07 11:04 | PM.OBPNVD ---
OB - PN: Subj Subjective Date/time seen: 06/07/24 11:04 Interval history: day 1 no complaints OB - PN: Obj Data Labs 06/07/24 04:15 Labs: Laboratory Results - last 24 hr 06/07/24 04:15 Hgb 10.3 L Hct 32.0 L OB - PN A/P Plan day: 1 Plan: routine care Time Spent With Patient Time: Total time spent is greater than 50% in coordination of care (as documented) at patient's floor/unit and/or counseling patient: Review of Systems Review of Systems: All systems reviewed & are unremarkable except as noted in HPI and below Exam Const: General: cooperative and healthy appearing Chest: Chest palpation & inspection: normal inspection of the chest Resp: Effort & Inspection: normal respiratory effort Cardio: Rate: regular rate Back/Spine/Pelvis: Back: no CVA tenderness Skin: General skin exam: normal color Extrem: Right lower extremity: normal to inspection Left lower extremity: normal to inspection Psych: Appearance: grossly normal
[2024-06-07 13:00] VITALS: BP 149/75; PULSE 69
[2024-06-07 15:45] VITALS: BP 149/68; PULSE 61; RESP 16; TEMP 36.4; O2SAT 100
[2024-06-07] MEDS: LANOLIN (LANSINOH) 7.5 GM CREAM 1 APPLIC TOPICAL (18:40)
[2024-06-07 19:30] VITALS: BP 135/70; PULSE 84; RESP 18; TEMP 36.9
--- NOTE | 2024-06-08 06:39 | PM.OBPNVD ---
OB - PN: Subj Subjective Date/time seen: 06/08/24 06:39 Interval history: day 2 no complaints plan discharge home OB - PN: Obj Data Labs 06/07/24 04:15 OB - PN A/P Plan day: 2 Plan: routine care Time Spent With Patient Time: Total time spent is greater than 50% in coordination of care (as documented) at patient's floor/unit and/or counseling patient: Review of Systems Review of Systems: All systems reviewed & are unremarkable except as noted in HPI and below Exam Const: General: cooperative and healthy appearing Chest: Chest palpation & inspection: normal inspection of the chest Resp: Effort & Inspection: normal respiratory effort Back/Spine/Pelvis: Back: no CVA tenderness Skin: General skin exam: normal color
--- NOTE | 2024-06-08 06:42 | PM.OBDSVD ---
DS: Admitting Diagnosis Discharge Date 06/08/24 Admitting Diagnosis IOL DS: Discharge Diagnosis Discharge Diagnosis (1) Vaginal delivery: Code(s): O80 - Encounter for full-term uncomplicated delivery Status: Acute OB - DS: Summary OB Procedures : None OB Procedures Intrapartum: Spontaneous Vag Delivery OB Procedures: : None Peripartum Data Laceration Description: Perineal - 2nd Degree Episiotomy description: None Time Spent with Patient Time attestation: Total time spent providing and/or coordinating discharge services: DS: Data Data Completed and Pending Pending studies at discharge: Pending at discharge 06/06/24 21:24 Surgical [PTH] Routine Discharge Plan Discharge Attending physician on discharge: Ronnie Castillo Discharging Clinician: Love Rod Patient Disposition: Home, Self-Care Activity: pelvic rest Diet: regular Patient Instructions: Antibiotic Form Stand Alone Forms: General Discharge Information Follow-up/Referrals: Love Rod, CNM [Certified Nurse [employer]] - 4 Weeks Discharge Medications: New ibuprofen 600 mg Tablet 600 mg PO Q6H PRN (Reason: Cramping) Qty: 30 0RF Continued Classic 28 mg iron- 800 mcg tablet 1 tablet PO DAILY sertraline 100 mg tablet 100 mg PO DAILY Discontinued aspirin [Adult Low Dose Aspirin] 81 mg tablet,delayed release (DR/EC) 162 mg PO DAILY metoclopramide HCl [Reglan] 10 mg Tablet 10 mg PO Q6H PRN (Reason: Nausea And Vomiting) acetaminophen [Tylenol Extra Strength] 500 mg Tablet 500 mg PO Q6H PRN (Reason: Nausea And Vomiting) Unisom (doxylamine) 25 mg Tablet 25 mg PO HS PRN (Reason: Sleep) Date of admission: 06/05/24 10:13 Primary Care Provider: Javier Briggs Admitting Provider: Nakul Garza Attending physician on admission: Nakul Garza Condition: Stable
[2024-06-08 07:57] VITALS: BP 129/65; PULSE 64; RESP 20; TEMP 36.6; O2SAT 100
[2024-06-08] MEDS: MULTIVIT/MIN/PREN/FOL AC/IRON TABLET 1 TAB PO (09:33)
[2024-06-08] MEDS: ACETAMINOPHEN 325 MG TABLET 650 MG PO (09:34)
[2024-06-08] MEDS: IBUPROFEN 600 MG TABLET PO (09:34)
[2024-06-08] MEDS: LANOLIN (LANSINOH) 7.5 GM CREAM 1 APPLIC TOPICAL (09:34)
[2024-06-08] MEDS: SERTRALINE HCL 50 MG TABLET 100 MG PO (09:34)
[2024-06-09 08:32] VITALS: BP 152/79; PULSE 79; RESP 18; TEMP 36.6; O2SAT 100
== END 2024-06-08 11:05 | disposition home or self-care (01) | DRG 560 ==
LOC: ANHLDR 06-06 00:31 → ANHOB2 06-07 00:46
PROVIDERS: Advanced Practice Midwife; Admitting Provider Obstetrics & Gynecology; PCP Internal Medicine; Visit Provider Obstetrics & Gynecology
DX: O14.04 Mild to moderate pre-eclampsia, complicating childbirth (principal); Z37.0 Single live birth; Z3A.37 37 weeks gestation of pregnancy; O70.1 Second degree perineal laceration during delivery; O34.211 Maternal care for low transverse scar from previous cesarean delivery; O13.4 Gestational [pregnancy-induced] hypertension without significant proteinuria, complicating childbirth
CPT/HCPCS: 36415; 85014; 85018; 85025; 86592; 86703; 86850; 86900; 86901; 88307; A9270; G0432; J2590; J7030; J7120

== ENCOUNTER 2024-06-09 08:34 | Outpatient (CLI) | payer OTHER, SELFPAY ==
[2024-06-09 09:01] VITALS: BP 160/77; PULSE 61
[2024-06-09 09:07] LABS: Basophils Percent Auto 0.2 % (0.2-1.2); Eosinophils Absolute Auto 0.1 K/mm3 (0-0.3); Eosinophils Percent Auto 1.2 % (0-4.4); Hematocrit 33.1 % (37.0-47.0); Hemoglobin 10.1 g/dL (12.0-15.0); Immature Granulocyte Absolute 0.08 K/mm3 (0.00-0.031); Lymphocytes Absolute Auto 1.69 K/mm3 (0.9-3.2); Lymphocytes Percent Auto 20.2 % (18.3-44.2); Mean Corpuscular HGB Conc 30.5 g/dl (32-36); Mean Corpuscular Hemoglobin 26.4 pg (26-34); Mean Corpuscular Volume 86.4 fl (80-100); Mean Platelet Volume 11.1 fl (7.4-10.4); Monocytes Absolute Auto 0.5 K/mm3 (0.1-0.6); Monocytes Percent Auto 6.2 % (2.6-8.5); Neutrophils Percent Auto 71.2 % (45.5-73.1); Platelet Count Result 139 k/mm3 (150-375); Red Blood Count 3.83 M/mm3 (4.2-5.4); Red Cell Distribution Width 14.9 % (11.5-14.5); White Blood Count 8.4 K/mm3 (4.5-10.0)
[2024-06-09 09:15] LABS: Alanine Aminotransferase 17 U/L (6-35); Albumin Level 3.4 g/dL (3.5-5.1); Alkaline Phosphatase 92 U/L (38-126); Anion Gap 8 mmol/L (4-12); Aspartate Amino Transferase 27 U/L (14-36); Bilirubin,Total 0.2 mg/dL (0.2-1.3); Blood Urea Nitrogen 7 mg/dL (7-17); Calcium 8.9 mg/dL (8.4-10.2); Carbon Dioxide 27 mmol/L (22-30); Chloride 100 mmol/L (98-107); Estimated Glomerular Filt Rate > 60; Glucose 69 mg/dL (65-110); Potassium 4.1 mmol/L (3.4-5.0); Sodium 135 mmol/L (137-145); Uric Acid 4.1 mg/dL (2.5-7.5)
[2024-06-09 09:16] VITALS: BP 165/73; PULSE 60
[2024-06-09 09:31] VITALS: BP 153/82; PULSE 57
[2024-06-09 09:46] VITALS: BP 145/71; PULSE 60
--- NOTE | 2024-06-09 09:54 | PC.NURSE ---
Dr Garza informed of BP's, lab results and headache level. OK to dc home and give patient meds for her headache.
[2024-06-09] MEDS: ACETAMINOPHEN/BUTALBITAL/CAFFEINE 325-50-40 MG TABLET (FIORICET) 1 TAB PO (10:02)
== END 2024-06-09 10:23 | disposition home or self-care (01) ==
LOC: ANHOBOP 08:39 → ANHOBPP 08:40
PROVIDERS: PCP Internal Medicine; Visit Provider Obstetrics & Gynecology
DX: O13.9 Gestational [pregnancy-induced] hypertension without significant proteinuria, unspecified trimester (principal)
CPT/HCPCS: 36415; 80053; 84550; 85025; 99199; A9270